=== PATIENT | male | born 1955 | race Asian ===

== ENCOUNTER 2020-05-07 08:05 | Outpatient (CLI) | payer BC, OTHER ==
[~2020-05-07 08:05] MED LIST: DILT-XR120 MG PO
== END 2020-05-07 21:54 | disposition home or self-care (01) ==
LOC: INF 08:05
PROVIDERS: ATTEND Internal Medicine
DX: Z23 Encounter for immunization (principal)
CPT/HCPCS: 96372

== ENCOUNTER 2020-05-29 08:09 | Outpatient (CLI) | payer BC, OTHER | END 2020-05-29 20:52 | disposition home or self-care (01) | LOC: INF 08:09 | PROVIDERS: ATTEND Internal Medicine | DX: Z23 Encounter for immunization (principal) | CPT/HCPCS: 96372 ==

== ENCOUNTER 2020-07-18 07:01 | Outpatient (CLI) | payer BC | END 2020-07-18 19:50 | disposition home or self-care (01) | LOC: LABW 07:01 | PROVIDERS: ATTEND Internal Medicine | DX: R73.9 Hyperglycemia, unspecified (principal) | CPT/HCPCS: 36415; 82951; 82952 ==

== ENCOUNTER 2020-09-11 10:19 | Outpatient (CLI) | payer BC | END 2020-09-11 22:05 | disposition home or self-care (01) | LOC: RAD 10:19 | PROVIDERS: ATTEND Internal Medicine | DX: M54.5 Low back pain (principal) ==

== ENCOUNTER 2021-02-24 12:44 | Outpatient (CLI) | payer BC | END 2021-02-24 19:16 | disposition home or self-care (01) | LOC: RESP 12:44 | PROVIDERS: ATTEND Specialist | DX: R29.898 Other symptoms and signs involving the musculoskeletal system (principal) ==

== ENCOUNTER 2021-04-02 09:51 | Outpatient (CLI) | payer BC | END 2021-04-02 19:11 | disposition home or self-care (01) | LOC: RAD 09:51 | PROVIDERS: ATTEND Specialist | DX: G62.9 Polyneuropathy, unspecified (principal); M19.019 Primary osteoarthritis, unspecified shoulder ==

== ENCOUNTER 2021-09-23 15:22 | Outpatient (CLI) | payer OTHER | END 2021-09-23 19:29 | disposition home or self-care (01) | LOC: RAD 15:22 | PROVIDERS: ATTEND Internal Medicine | DX: M47.817 Spondylosis without myelopathy or radiculopathy, lumbosacral region (principal) ==